=== PATIENT | male | born 1975 | race Caucasian/White ===

== ENCOUNTER 2023-11-05 11:02 | Emergency (ER) | payer OTHER ==
[~2023-11-05] VITALS: Ht 182.9 cm; Wt 83.9 kg
[2023-11-05] MEDS ORDERED: hydrOXYzine pamoate 50 MG CAP PO ONE (11:45)
[2023-11-05 12:07] LABS: BASOPHILS 0.4 % (0-2); EOSINOPHILS 0.6 % (0-6); HEMATOCRIT 39.3 % (35.0-50.0); HEMOGLOBIN 13.8 g/dL (12.0-18.0); LYMPHOCYTES 21.9 % (24-44); MCH 30.9 (27-36); MCV 88.3 fl (81-99); MONOCYTES 6.5 % (0-12); NEUTROPHILS 70.6 % (39-80); PLATELET COUNT 278 K/uL (140-440); RBC 4.45 M/ul (4.3-5.7)
--- OUTSIDE RECORDS SUMMARY | 2023-11-05 12:10 | XMS ---
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 Events No recent Security Events currently on file CRITERIA MET - 6 ED Visits in 6 Months - [facility] [place] - 2 Visits in 30 Days - [facility] [place] - 3 Facilities in 90 Days CARE PROVIDERS NACHO CARMEN/Center: Federally Qualified 11/02/2023-[facility] ([facility] PHONE: [phone] -Venkatesh DDS Dentist: Credit Risk Specialist Current PHONE: [phone] CHELSEA RAND Physician Current PHONE: [phone] FELISA HAAS Emergency Medicine Current PHONE: [phone] DIANE CONTRERAS Hose Inspector And Patcher/Shorthand Teacher Current [facility] TEAM PHONE: [phone] Phyllis has no Care Guidelines for this patient. E.D. VISIT COUNT (12 MO.) [facility] 1 [facility] 1 [facility] 1 [facility]. TOTAL 8 NOTE: Visits indicate total known visits. ED/UCC VISIT TRACKING (12 MO.) 11/05/2023 11:03 JUANA Humphrey [place] TYPE: Emergency COMPLAINT: - MEDICAL CLEARANCE 11/05/2023 07:22 [facility] [place] TYPE: Emergency DIAGNOSES: - Encounter for screening, unspecified 10/28/2023 19:37 Samuel COOK [place] TYPE: Emergency DIAGNOSES: - Unspecified psychosis not due to a substance or known physiological condition - Hallucinations - Paranoid 09/04/2023 16:19 [facility] LASHAY Angel TYPE: Emergency DIAGNOSES: - Delusional disorders - Paranoid [facility] DIAGNOSES: - Delusional disorders [facility] DIAGNOSES: - Delusional disorders - Hallucinations - Paranoid - Psychiatric Evaluation 08/24/2023 14:12 [facility] TYPE: Emergency COMPLAINT: - R- SI DIAGNOSES: - Depression, unspecified - Suicidal ideations - R- SI - Suicidal 07/30/2023 21:21 [facility] Jocelynn FINLAYSON [place] TYPE: Emergency DIAGNOSES: - Poisoning by unspecified drugs, medicaments and biological substances, intentional self-harm, initial encounter - Suicidal ideations - Medical Clearance INPATIENT VISIT TRACKING (12 MO.) 10/29/2023 21:08 [facility] [place] Jocelynn TYPE: Behavioral Health DIAGNOSES: - Schizoaffective disorder, unspecified - Unspecified mood [affective] disorder - Unspecified psychosis not due to a substance or known physiological condition 08/28/2023 16:57 [facility]ie [facility] LASHAY Cabezas TYPE: Behavioral Health DIAGNOSES: - Delusional disorders 08/25/2023 12:11 [facility] LASHAY Cabezas TYPE: Behavioral Health DIAGNOSES: - Depression, unspecified - Other specified depressive episodes [email or web address]
[2023-11-05 12:32] LABS: ACETAMINOPHEN 0 ug/mL (10-30); ALBUMIN 3.4 g/dL (3.4-5.0); ALBUMIN/GLOBULIN RATIO 0.89 (1.1-2.4); ALCOHOL, MEDICAL <3 ng/dL (<3); ALKALINE PHOSPHATASE 90 U/L (46-116); ALT (SGPT) 23 U/L (14-59); ANION GAP 12.4 (7-21); AST (SGOT) 27 U/L (15-37); BILIRUBIN, TOTAL 0.7 ng/dL (0.2-1.0); BUN/CREATININE RATIO 8.62 (6.0-28.6); CALCIUM 8.2 mg/dL (8.5-10.1); CARBON DIOXIDE 26 mmol/L (21-32); CHLORIDE 109 mmol/L (98-107); CREATININE, SERUM 1.16 mg/dL (0.70-1.30); GLOMERULAR FILTRATION RATE,EST 77 mL/min (>60); POTASSIUM 3.4 mmol/L (3.5-5.1); PROTEIN, TOTAL 7.2 g/dL (6.4-8.2); SALICYLATE <0.2 mg/dL (2.8-20.0); TSH, 3RD GENERATION 2.389 uIU/mL (0.358-3.740); UREA NITROGEN 10 mg/dL (7-18)
[2023-11-05 12:39] LABS: AMPHETAMINES, URINE POSITIVE (NEGATIVE); BARBITURATES, URINE NEGATIVE (NEGATIVE); BENZODIAZEPINE, URINE NEGATIVE (NEGATIVE); BUPRENORPHINE, URINE NEGATIVE (NEGATIVE); CANNABINOID, URINE NEGATIVE (NEGATIVE); COCAINE, URINE NEGATIVE (NEGATIVE); ECSTASY, URINE POSITIVE (NEGATIVE); FENTANYL, URINE NEGATIVE (NEGATIVE); METHADONE, URINE NEGATIVE (NEGATIVE); OPIATES, URINE NEGATIVE (NEGATIVE); OXYCODONE, URINE NEGATIVE (NEGATIVE); PHENCYCLIDINE, URINE NEGATIVE (NEGATIVE)
[2023-11-05] MEDS ORDERED: hydrOXYzine pamoate 25 MG CAP PO ONE (15:30)
[2023-11-05] MEDS ORDERED: NICOTINE POLACRILEX 4 MG LOZENGE BUCCAL PRN (18:30)
[2023-11-05] MEDS ORDERED: HALOPERIDOL LACTATE 5 MG/ML VIAL IM ONE (20:45)
[2023-11-05] MEDS ORDERED: diphenhydrAMINE HCL 50 MG/ML VIAL IM ONE (20:45)
[2023-11-05] MEDS ORDERED: LORazepam 2 MG/ML VIAL IM ONE (20:45)
[2023-11-05] MEDS ORDERED: HALOPERIDOL LACTATE 5 MG/ML VIAL ONE (21:07)
[2023-11-05] MEDS ORDERED: LORazepam 2 MG/ML VIAL ONE (21:08)
[2023-11-05] MEDS ORDERED: diphenhydrAMINE HCL 50 MG/ML VIAL ONE (21:08)
[2023-11-06] MEDS ORDERED: clonazePAM 1 MG TAB PO SCH (12:51)
[2023-11-06] MEDS ORDERED: clonazePAM 1 MG TAB PO PRN (13:45)
[2023-11-06] MEDS ORDERED: DIVALPROEX SODIUM 500 MG TABEC PO SCH (21:00)
[2023-11-07] MEDS ORDERED: clonazePAM 1 MG TAB PO PRN (10:15)
[2023-11-07 15:12] VITALS: BP 127/78
== END 2023-11-07 15:16 ==
LOC: ED 11:02
PROVIDERS: Emergency Medicine
DX: F22 Delusional disorders (principal); Z88.0 Allergy status to penicillin
CPT/HCPCS: 36415; 80053; 80307; 84443; 85025; 96372; 99285; G0480; J1200; J1630; J2060; Q0177; U0002